=== PATIENT | female | born 1955 | race Caucasian/White ===

== ENCOUNTER → 2016-11-30 | Outpatient (CLI) | payer BC ==
[~2016-11-30] MED LIST: ATENOLOL50 MG PO; CELEBREX200 MG PO; CHILDREN'S ASPI81 M1 PO; COREG 6.256.25 MG/TA PO; CYMBALTA30 M1 PO; FLONASE0.05 MG/AC NS; HYZAAR 100-251 EACH PO; MULTIPLE VITAMI1 TAB PO; NEXIUM 40MG40 MG; SYNTHROID0.05 MG PO; XANAX 0.5MG0.5 MG PO
== END ==
LOC: LAB 09:32
DX: Z00.00 Encounter for general adult medical examination without abnormal findings (principal); I10 Essential (primary) hypertension; E53.8 Deficiency of other specified B group vitamins; E07.89 Other specified disorders of thyroid

== ENCOUNTER → 2017-12-05 | Outpatient (CLI) | payer BC ==
[2015-12-07 12:36] VITALS: BP 146/88
[2017-12-05 08:08] LABS: BASO # 0.1 (0.02-0.10); EOS # 0.4 (0.04-0.40); EOS % 4.2 % (1.0-5.0); HEMATOCRIT 42.2 % (37.0-47.0); LYMPH# 2.5 (1.50-4.00); MEAN CELL VOLUME 97 fl (78-100); MEAN CORPUSCULAR HEMOGLOBIN 32 pg (27-31); MEAN CORPUSCULAR HGB CONC 33 g/dL (33-37); MEAN PLATELET VOLUME 10.2 fl (7.4-10.4); MONO # 0.7 (0.20-0.80); NEU # 5.2 (1.40-6.50); PLATELET COUNT 432 K/mm3 (130-400); RED BLOOD COUNT 4.36 M/mm3 (4.10-5.30); RED CELL DISTRIBUTION WIDTH 12.6 % (11.5-14.5); WHITE BLOOD COUNT 8.8 K/mm3 (4.8-10.8)
[2017-12-05 08:14] LABS: ALBUMIN 4.5 g/dL (3.5-5.0); BUN/CREATININE RATIO 23.7 (6.0-26.0); CALCIUM 9.8 mg/dL (8.4-10.2); POTASSIUM 4.3 mmol/L (3.6-5.0); TOTAL BILIRUBIN 0.5 mg/dL (0.2-1.3); TOTAL PROTEIN 7.6 g/dL (6.3-8.2)
[2017-12-05 09:09] LABS: ERYTHROCYTE SEDIMENTATION RATE 12 mm/hr (0-30)
== END ==
LOC: LAB 07:48
PROVIDERS: Internal Medicine
DX: Z12.11 Encounter for screening for malignant neoplasm of colon (principal); Z00.00 Encounter for general adult medical examination without abnormal findings; E53.8 Deficiency of other specified B group vitamins